=== PATIENT | male | born 1975 | race African-American/Black ===

== ENCOUNTER 2017-10-18 22:17 | Emergency (ER) | payer BC, SELFPAY ==
--- NOTE | 2017-10-18 23:38 | RAD ---
CHEST TWO VIEWS: HISTORY: Bilateral leg swelling. TECHNIQUE: PA and lateral views of the chest are obtained. FINDINGS: The lungs are well aerated. No evidence of active intrathoracic disease is seen. No evidence of eff usions, pneumonia, or pneumothorax is seen. IMPRESSION: Normal two views chest. POS: [facility]
[2017-10-19 00:13] LABS: Eosinophils 1 % (0-10); Hemoglobin 12.5 g/dL (14.0-18.0); Lymphocytes 72 % (21-51); MDiff Complete? YES; Mean Corpuscular HGB CONC 30.9 g/dL (32.0-36.0); Mean Corpuscular Hemoglobin 25.8 pg (27.0-31.0); Mean Corpuscular Volume 83.5 fL (78.0-98.0); Mean Platelet Volume 7.9 fL (7.4-10.4); Monocytes 5 % (0-10); Neutrophil 22 % (42-75); PLT Morphology Comment Appears Adequate; Platelet Count 247 thou/uL (130-400); RBC Distribution Width 12.7 % (11.5-14.5); Red Blood Cell (RBC) Count 4.86 mill/uL (4.70-6.10); White Blood Cell (WBC) Count 7.5 thou/uL (4.8-10.8)
[2017-10-19 00:19] LABS: ALT (SGPT) 55 U/L (8-55); AST (SGOT) 24 U/L (5-34); Alkaline Phosphatase 63 U/L (40-150); Anion Gap 14 mmol/L (10-20); BUN (Urea Nitrogen) 17 mg/dL (8.9-20.6); Bilirubin, Total 0.2 mg/dL (0.2-1.2); Calc. Creatinine Clearance 0 mL/min (70-130); Calcium 9.1 mg/dL (7.8-10.44); Carbon Dioxide 22 mmol/L (22-29); Chloride 105 mmol/L (98-107); Estimated GFR-MDRD Greater than 90; Globulin 3.3 g/dL (2.4-3.5); Glucose 106 mg/dL (70-105); Protein, Total 7.3 g/dL (6.0-8.3); Sodium 137 mmol/L (136-145)
[2017-10-19 00:23] LABS: Troponin I Less than 0.010 ng/mL (< 0.028)
== END 2017-10-19 00:54 | disposition home or self-care (01) ==
LOC: ERS 22:17
DX: R60.0 Localized edema (principal); F32.9 Major depressive disorder, single episode, unspecified; F17.210 Nicotine dependence, cigarettes, uncomplicated
CPT/HCPCS: 71046; 80053; 83880; 84484; 85025; 93005

== ENCOUNTER 2019-01-09 19:39 | Emergency (ER) | payer BC, SELFPAY | END 2019-01-09 23:03 | disposition home or self-care (01) | LOC: ERS 19:39 | DX: G51.0 Bell's palsy (principal); M54.41 Lumbago with sciatica, right side; F32.9 Major depressive disorder, single episode, unspecified; F17.210 Nicotine dependence, cigarettes, uncomplicated | CPT/HCPCS: 99283 ==

== ENCOUNTER 2021-09-21 17:53 | Inpatient (IN) | payer BC, SELFPAY ==
[2021-09-21 18:21] LABS: Hemoglobin 14.6 g/dL (14.0-18.0); Mean Corpuscular HGB CONC 32.6 g/dL (32.0-36.0); Mean Corpuscular Hemoglobin 28.1 pg (27.0-31.0); Mean Corpuscular Volume 86.3 fL (78.0-98.0); Mean Platelet Volume 7.4 fL (7.4-10.4); Platelet Count 294 thou/uL (130-400); RBC Distribution Width 12.4 % (11.5-14.5); Red Blood Cell (RBC) Count 5.19 mill/uL (4.70-6.10); White Blood Cell (WBC) Count 8.1 thou/uL (4.8-10.8)
[2021-09-21 18:36] LABS: Eosinophils 2 % (0-10); Lymphocytes 58 % (21-51); MDiff Complete? YES; Monocytes 4 % (0-10); Neutrophil 23 % (42-75); Platelet Morphology Comment Appears Adequate; Polychromasia SLIGHT = 2-3 cells (100X) (0-2/hpf); Reactive Lymphocytes 11 % (0-10)
[2021-09-21 18:45] LABS: ALT (SGPT) 37 U/L (8-55); AST (SGOT) 22 U/L (5-34); Alkaline Phosphatase 58 U/L (40-110); Anion Gap 13 mmol/L (10-20); BUN (Urea Nitrogen) 13 mg/dL (8.9-20.6); Bilirubin, Total 0.2 mg/dL (0.2-1.2); Calc. Creatinine Clearance 0 mL/min (70-130); Calcium 9.3 mg/dL (7.8-10.44); Carbon Dioxide 23 mmol/L (22-29); Chloride 107 mmol/L (98-107); Globulin 3.4 g/dL (2.4-3.5); Glucose 158 mg/dL (70-105); Potassium 4.3 mmol/L (3.5-5.1); Protein, Total 7.4 g/dL (6.0-8.3); Sodium 139 mmol/L (136-145)
[2021-09-21 19:17] LABS: Magnesium 1.9 mg/dL (1.6-2.6)
[2021-09-21] MEDS ORDERED: Meclizine HCl 25 MG TAB ONE (19:46)
[2021-09-21 20:06] LABS: Bilirubin Negative (Negative); Blood, Urine Negative (Negative); Clarity Clear (Clear); Glucose, Urine (Dipstick) Normal (Negative); Ketone, Urine Negative (Negative); Leukocyte Negative Leu/uL (Negative); Nitrite Negative (Negative); Protein, Urine (Dipstick) Negative (Neg-Trace); Specific Gravity, Urine 1.025 (1.002-1.036); Urobilinogen Normal mg/dL (Less than 2)
[2021-09-21] MEDS ORDERED: Aspirin Chewable 81 MG TAB ONE (20:46)
[2021-09-22] MEDS ORDERED: Ondansetron PF 4 MG/2 ML Vial IVP PRN (01:43)
[2021-09-22] MEDS ORDERED: Ondansetron ODT 4 MG TAB PO PRN (01:43)
[2021-09-22] MEDS ORDERED: hydrALAZINE 20 MG/ML VIAL SLOW IVP PRN (01:43)
[2021-09-22] MEDS ORDERED: Acetaminophen 325 MG TAB PO PRN (01:43)
[2021-09-22] MEDS ORDERED: Acetaminophen 650 MG Suppository PR PRN (01:43)
[2021-09-22 02:53] VITALS: BMI 31.0
[2021-09-22 05:00] LABS: Hemoglobin 14.2 g/dL (14.0-18.0); Mean Corpuscular HGB CONC 32.5 g/dL (32.0-36.0); Mean Corpuscular Volume 85.9 fL (78.0-98.0); Mean Platelet Volume 7.5 fL (7.4-10.4); Platelet Count 261 thou/uL (130-400); RBC Distribution Width 12.5 % (11.5-14.5); Red Blood Cell (RBC) Count 5.08 mill/uL (4.70-6.10); White Blood Cell (WBC) Count 6.6 thou/uL (4.8-10.8)
[2021-09-22 05:23] LABS: Eosinophils 3 % (0-10); Lymphocytes 63 % (21-51); MDiff Complete? YES; Monocytes 7 % (0-10); Neutrophil 24 % (42-75); Reactive Lymphocytes 2 % (0-10)
[2021-09-22 05:24] LABS: Anion Gap 11 mmol/L (10-20); BUN (Urea Nitrogen) 14 mg/dL (8.9-20.6); Calc. Creatinine Clearance 127 mL/min (70-130); Carbon Dioxide 24 mmol/L (22-29); Cardiac Risk 6.1 (Less than 4.5); Chloride 107 mmol/L (98-107); Cholesterol 220 mg/dl (< 200 Desired); Glucose 116 mg/dL (70-105); HDL Cholesterol 36 mg/dL (>60 Neg Risk); LDL Cholesterol, Calculated 150 mg/dL; Potassium 4.1 mmol/L (3.5-5.1); Sodium 138 mmol/L (136-145); Triglycerides 172 mg/dL (Less than 150)
[2021-09-22 06:22] LABS: Hemoglobin A1c 6.3 % (4.0-6.0)
[2021-09-22] MEDS: Aspirin 81 mg Enteric Coated Tablet PO SCH (07:19)
[2021-09-22] MEDS ORDERED: Ciprofloxacin 0.2% Otic (0.25ML CONTAINER) R EAR SCH (07:30)
[2021-09-22 08:02] LABS: Free T4 (Free Thyroxine) 0.75 ng/dL (0.70-1.48)
[2021-09-22] MEDS ORDERED: ISOVUE-370 76%-LOCM 1 ML ONE (13:53)
[2021-09-22] MEDS: Ciprofloxacin 0.2% Otic (0.25ML CONTAINER) R EAR SCH (21:30)
[2021-09-22] MEDS ORDERED: Meclizine HCl 25 MG TAB PO PRN (22:14)
[2021-09-23 05:42] LABS: Anion Gap 11 mmol/L (10-20); BUN (Urea Nitrogen) 12 mg/dL (8.9-20.6); Calc. Creatinine Clearance 131 mL/min (70-130); Carbon Dioxide 25 mmol/L (22-29); Chloride 104 mmol/L (98-107); Glucose 102 mg/dL (70-105); Sodium 136 mmol/L (136-145)
[2021-09-23 05:56] LABS: Band 1 % (5-11); Eosinophils 2 % (0-10); Hemoglobin 13.7 g/dL (14.0-18.0); Lymphocytes 68 % (21-51); MDiff Complete? YES; Mean Corpuscular HGB CONC 31.7 g/dL (32.0-36.0); Mean Corpuscular Hemoglobin 27.4 pg (27.0-31.0); Mean Corpuscular Volume 86.2 fL (78.0-98.0); Mean Platelet Volume 7.4 fL (7.4-10.4); Monocytes 5 % (0-10); Neutrophil 23 % (42-75); Platelet Count 280 thou/uL (130-400); RBC Distribution Width 12.4 % (11.5-14.5); White Blood Cell (WBC) Count 6.7 thou/uL (4.8-10.8)
[2021-09-23 08:09] VITALS: BP 136/88; TEMP 97.8
[2021-09-23] MEDS: Aspirin 81 mg Enteric Coated Tablet PO SCH (08:32)
[2021-09-23] MEDS: Ciprofloxacin 0.2% Otic (0.25ML CONTAINER) R EAR SCH (08:33)
[2021-09-23] MEDS ORDERED: Atorvastatin Calcium 40 MG TAB PO SCH (21:00)
== END 2021-09-23 13:53 | disposition home or self-care (01) | DRG 149 ==
LOC: ERS 17:53 → NEURO 21:36 → OBSVTOIN 09-22 17:46
PROVIDERS: ADMIT Hospitalist; ATTEND Hospitalist
DX: H81.10 Benign paroxysmal vertigo, unspecified ear (principal); H70.891 Other mastoiditis and related conditions, right ear; Z20.822 Contact with and (suspected) exposure to COVID-19; F32.A Depression, unspecified; F17.210 Nicotine dependence, cigarettes, uncomplicated; H81.11 Benign paroxysmal vertigo, right ear; Z79.899 Other long term (current) drug therapy; Z79.82 Long term (current) use of aspirin
CPT/HCPCS: 36415; 70450; 70496; 70498; 70551; 71045; 80048; 80053; 80061; 81003; 83036; 83735; 84439; 84443; 84481; 84484; 85025; 93005; 93306; G0378; Q9966; U0003; U0005

== ENCOUNTER 2023-05-21 07:08 | Emergency (ER) | payer BC ==
[2023-05-21 08:33] LABS: SARS-CoV-2 NAA Rapid Test DETECTED (NotDetected)
== END 2023-05-21 09:02 | disposition home or self-care (01) ==
LOC: ERS 07:08
DX: U07.1 COVID-19 (principal); F32.9 Major depressive disorder, single episode, unspecified; F17.210 Nicotine dependence, cigarettes, uncomplicated; Z55.6 Problems related to health literacy
CPT/HCPCS: 87804; 99283; U0002

== ENCOUNTER 2023-09-10 00:02 | Emergency (ER) | payer BC ==
[2023-09-10 01:17] LABS: Influenza A by NAA Not Detected (NotDetected); Influenza B by NAA Not Detected (NotDetected); SARS-CoV-2 NAA Rapid Test Not Detected (NotDetected)
== END 2023-09-10 01:51 | disposition home or self-care (01) ==
LOC: ERS 00:02
DX: J06.9 Acute upper respiratory infection, unspecified (principal)
CPT/HCPCS: 99283

== ENCOUNTER 2024-12-05 21:02 | Emergency (ER) | payer BC ==
[2024-12-05] MEDS ORDERED: Boostrix 0.5 ML (Tdap) VIAL (>/=7 yrs of age) ONE (23:31)
[2024-12-05] MEDS ORDERED: Ibuprofen 800 MG TAB ONE (23:31)
[2024-12-06] MEDS ORDERED: Sulfameth/Trimethoprim DS 800-160mg TAB ONE (00:18)
== END 2024-12-06 00:34 | disposition home or self-care (01) ==
LOC: ERS 21:02
DX: L03.012 Cellulitis of left finger (principal); F17.210 Nicotine dependence, cigarettes, uncomplicated; Z23 Encounter for immunization
CPT/HCPCS: 10060; 90471; 90715